=== PATIENT | female | born 1940 | race Caucasian/White ===

== ENCOUNTER 2023-07-12 12:20 | Outpatient (AMB) | payer MEDICARE, SELFPAY ==
--- NOTE | 2023-07-12 12:26 | AM.OFFWIN_ITS ---
Intake Vital Signs 07/12/23 12:31 Height 5 ft 3 in Weight 155 lb BMI 27.5 BP 126/70 Blood Pressure Location Rt brachial Position Sitting Pulse 72 Pulse Source Pulse Oximeter Temp 98.7 F Temp Source Oral Pulse Oximetry (%) 98 Oxygen Delivery Method Room Air Intake Visit Reasons: [employer]/ hip/thigh pain (lobby) Intake Note: pt is here for hip an thigh pain Patient Tobacco Use Status: Never used Tobacco Allergies No Known Allergies Allergy (Verified 07/12/23 12:32) Do you need a note to return to daycare/school/sports/work: No HPI HPI Comments History of Present Illness Details 83 y/o female patient who presents to [facility] in clinic with c/o right hip/thigh pain that radiates down to her lower leg x 2 weeks. Describes the pain as Burning and sharp, comes and goes in waves. Pain worse when lying in Bed. Denies injury or trauma. PFSH Social History Patient Tobacco Use Status: Never used Tobacco Review of Systems Const All systems reviewed & are unremarkable except as noted in HPI and below Physical Exam Vital Signs: Last Vital Signs Temp 98.7 F 07/12/23 12:31 Pulse 72 07/12/23 12:31 BP 126/70 07/12/23 12:31 Pulse Ox 98 07/12/23 12:31 Oxygen Delivery Method Room Air 07/12/23 12:31 BMI result Body Mass Index 27.5 Const General: comfortable and no acute distress Nutritional Appearance: obese Orientation/consciousness: patient oriented x3 Neuro General: patient oriented x3, gait normal and moves all extremities Extrem Right lower extremity: normal to inspection, full ROM and hip/thigh Details: normal to inspection and normal ROM; no swelling Left lower extremity: normal to inspection, full ROM and hip/thigh Details: normal to inspection and normal ROM Psych Speech and movement: Normal speech and movement present Assessment & Plan Assessment & Plan (1) Osteoarthritis of right hip: Code(s): M16.11 - Unilateral primary osteoarthritis, right hip Qualifiers: Osteoarthritis type: primary Qualified Code(s): M16.11 - Unilateral primary osteoarthritis, right hip Plan: - Acetaminophen for pain relief - Placed referral to PT - [facility] Orders: Orders XR hip RT min 2V Today M16.11 - Unilateral primary osteoarthritis, right hip PT Evaluation and Treatment Today M16.11 - Unilateral primary osteoarthritis, right hip Medications: New acetaminophen 1,000 mg (2 x 500 mg) PO Q6H PRN 30 caps 0RF pain (scale score 4- 6) M16.11 - Unilateral primary osteoarthritis, right hip Coding Level of Care Code New Pt Level 3 (15251) Diagnoses Primary osteoarthritis of right hip M16.11 Osteoarthritis type: primary Time Spent (min) 15
[2023-07-12 12:31] VITALS: BP 126/70; PULSE 72; TEMP 37.1; O2SAT 98; BMI 27.5
== END 2023-07-12 12:56 | disposition home or self-care (01) ==
PROVIDERS: Visit Provider Nurse Practitioner Family
DX: M16.11 Unilateral primary osteoarthritis, right hip (principal)
CPT/HCPCS: 99203

== ENCOUNTER 2023-07-12 13:22 | Outpatient (REF) | payer MEDICARE, SELFPAY ==
--- NOTE | ~2023-07-12 | XR_ITS ---
EXAMINATION: XR HIP, RIGHT CLINICAL INFORMATION: Right hip pain. COMPARISON: None available. TECHNIQUE: Two views of the right hip. FINDINGS: Alignment is anatomic. There is moderate inferomedial cartilage space loss with marginal osteophytes. No displaced fracture or dislocation. XR/XR hip RT min 2V IMPRESSION: Moderate osteoarthritis of the right hip.
== END 2023-07-12 13:23 | disposition home or self-care (01) ==
LOC: HO.HMGCX 13:22
PROVIDERS: Visit Provider Nurse Practitioner Family
DX: M16.11 Unilateral primary osteoarthritis, right hip (principal)
CPT/HCPCS: 73502

== ENCOUNTER 2023-08-28 10:00 | Outpatient (RCR) | payer MEDICARE, SELFPAY ==
--- NOTE | 2023-07-29 11:58 | MHC.PT.EP ---
[facility] [place] Office [place] Office [place] Office [address] [phone] F: [phone] F: [phone] F: [phone] F: [phone] Physical Therapy Plan of Care Date of Evaluation: 07/29/23 Date of Surgery: Diagnosis: Unilateral OA R hip Assessment: Patient is a 83 year old R handed female who presents with s/s consistent with unilateral OA R hip, Hip pain. She does not work and is fairly sedentary in her daily routine. Patient past medical history includes anxiety and a history of falls. Current impairments include pain, posture, ROM, strength, activity tolerance and functional mobility. Functional limitations include decreased ability to sleep, stand, walk, bend, squat and lift. Patient is motivated with good rehab potential. Skilled PT will address impairments and functional limitations in order to achieve goals. Frequency and Duration: The patient will be seen 2x/week for 5 weeks Short Term Goals: I with HEP - 2 weeks hip ER 37 R - 3 weeks Lumbar AROM rotation 75% and pain free - 3 weeks Nursing Home Goals: pain free sleeping - 5 weeks hip strength 4/5 grossly - 5 weeks [address]metrical stair negotiation - 5 weeks LEFS 28/ - 5 weeks Treatment Plan: Modalities to reduce pain, spasms and effusion. Manual therapy to restore motion and function. Therapeutic exercise to improve strength and flexibility. Neuromuscular re-education for posture and balance. Therapeutic activities to return to functional activities of daily living. Electronically signed by: Kendrick Atkinson PT Please sign and return to therapist. Thank you for your referral.
--- NOTE | 2023-11-27 10:51 | MHC.PT.DC ---
[facility] [place] Office [place] Office [place] Office [address] Kashif Mcnair [address] [phone] F: [phone] F: [phone] F: [phone] F: [phone] Physical Therapy Discharge Report Diagnosis: Unilateral OA R hip Date of Surgery: Date of Evaluation: 07/29/23 Date of Discharge: 09/18/23 Treatments to Date: 4 Cancellations to Date: No Shows to Date: Discharge Status: Patient Elected to Stop Discharge Summary: 08/28/23: pt not progressing well with skilled PT. she does self limit at times and seems downtrodden often. difficulty to progress. 08/12/23: pt progressing slowly and self limits at times. we held on progression today and pt required a good amount of edu and encouragement. 08/02/23: pt progressing well with skilled PT. she requires some encouragement but motivated and willing to participate. Patient is a 83 year old R handed female who presents with s/s consistent with unilateral OA R hip, Hip pain. She does not work and is fairly sedentary in her daily routine. Patient past medical history includes anxiety and a history of falls. Current impairments include pain, posture, ROM, strength, activity tolerance and functional mobility. Functional limitations include decreased ability to sleep, stand, walk, bend, squat and lift. Patient is motivated with good rehab potential. Skilled PT will address impairments and functional limitations in order to achieve goals. Electronically signed by: Kendrick Atkinson, PT Please sign and return to therapist. Thank you for your referral.
== END 2023-11-27 10:52 | disposition home or self-care (01) ==
LOC: HO.PTCHIC 10:00
PROVIDERS: PCP Internal Medicine; Visit Provider Nurse Practitioner Family
DX: M16.11 Unilateral primary osteoarthritis, right hip (principal)
CPT/HCPCS: 97110; 97162

== ENCOUNTER 2023-11-13 10:14 | Outpatient (AMB) | payer MEDICARE, SELFPAY ==
[2023-11-13 10:26] VITALS: BP 128/80; PULSE 70; O2SAT 98; BMI 26.9
--- NOTE | 2023-11-13 10:26 | MHC.PC.OV ---
Vital Signs 11/13/23 10:26 Height 5 ft 3 in Weight 152 lb BMI 26.9 BP 128/80 Blood Pressure Location Lt brachial Position Sitting Pulse 70 Pulse Source Pulse Oximeter Pulse Oximetry (%) 98 Oxygen Delivery Method Room Air Intake Visit Reasons: est Care Osteoarthritis Intake Note: Pt is here today for New patient visit. Pt states that she does not like being alone and she lives alone. Allergies No Known Allergies Allergy (Verified 11/13/23 10:27) Medication List - Last Reconciled 11/13/23 by Gail Andre MD acetaminophen 1,000 mg (2 x 500 mg) PO Q6H PRN amlodipine 5 mg PO DAILY lisinopril 40 mg PO DAILY lorazepam mg PO QID metoprolol succinate ER 50 mg PO BID mirtazapine 15 mg PO BEDTIME venlafaxine 75 mg PO DAILY Tobacco use date assessed: 11/13/23 Fall risk assessment: 1 Fall in past year Last assessed Fall Risk: 11/13/23 Dental Screening Dental Screen Date: 11/13/23 Did you have a dental visit in the last 12 months?: No Did you have a dental problem in the last 6 months where you did not have access to dental care?: No Was dental information given to patient?: Patient declined HPI est Care Osteoarthritis HPI Details Pt presents for [employer] visit. PMH includes HTN, depression and anxiety. Pt c/o worsening depression since her 3 years ago. She has been taking mirtazapine and venlafaxine with some relief. Patient would like to have a counseling. She denies suicide ideation. PFSH Surgical History (Updated 11/13/23 @ 10:37 by JUSTO Awad) History of bilateral knee replacement Hx of appendectomy Hx of cholecystectomy Family History (Updated 11/13/23 @ 10:38 by JUSTO Awad) Father No problems noted. Mother Stroke Hypertension Social History (Updated 11/13/23 @ 11:10 by Gail Andre MD) Household Members: None Household Members Other:: lives alone, Housing: House Patient Tobacco Use Status: Never used Tobacco e-Cigarette/Vaping Use: Never Used service: No Current occupational status: retired Cognitive needs: No Hearing needs: Yes Vision needs: Yes Questionnaire PHQ-9 Over the last 2 weeks, how often have you been bothered by any of the following problems? 1. Little interest or pleasure in doing things: several days 2. Feeling down, depressed, or hopeless: nearly every day 3. Trouble falling or staying asleep, or sleeping too much: nearly every day 4. Feeling tired or having little energy: nearly every day 5. Poor appetite or overeating: several days 6. Feeling bad about yourself - or that you are a failure or have let yourself or your family down: not at all 7. Trouble concentrating on things, such as reading the newspaper or watching television: several days 8. Moving or speaking so slowly that other people could have noticed. Or the opposite - being so fidgety or restless that you have been moving around a lot more than usual: not at all 9. Thoughts that you would be better off or of hurting yourself in some way: not at all Total score: 12 Depression Screening Interpretation: Positive (refer to counseling) Depression Screening Follow-up: Existing condition and In treatment Depression Screening Done: Yes 69548 - PHQ-9 Billing: Yes Source: Developed by Drs. Chaitanya Vitale, Elicia Nunez, Kirk Smith and colleagues, with an educational jenniffer from [employer]. Thrive Questionnaire Date Thrive assessed: 11/13/23 I am a: Patient What is your living situation today?: I have a steady place to live Within the past 12 months, did the food you bought not last and you didn't have the money to get more?: Never true Within the past 12 months, did you worry whether your food would run out before you got money to buy more?: Never true Do you have trouble paying for medicines?: No Do you have trouble getting transportation to medical appointments?: No Do you have trouble paying your heating and electricity bill?: No Do you have trouble taking care of your child, family member or friend?: No Do you have trouble with day-to-day activities such as bathing, preparing meals, shopping, managing finances, etc.?: No Are you currently unemployed and looking for a job?: No Are you interested in more education?: No Please select the resources that you would like help with: None Currently or been in a relationship where the following occur: No concerns reported THRIVE Score: 0 AUDIT C Alcohol Use Questionnaire (AUDIT-C) 1. How often do you have a drink containing alcohol?: Never 3. How often do you have six or more drinks on one occasion?: Never Total Score: 0 MAULIK-7 AMB Questionnaire MAULIK-7 Date MAULIK - 7 assessed: 11/13/23 Feeling nervous, anxious, or on edge: 2 = More than half the days Not being able to stop or control worryin = More than half the days Worrying too much about different things: 2 = More than half the days Trouble relaxin = More than half the days Being so restless that it is hard to sit still: 0 = Not at all Becoming easily annoyed or irritable: 1 = Several days Feeling afraid as if something awful might happen: 1 = Several days Total MAULIK-7 score (0-4 normal; 5-9 mild; 10-14 moderate; 15-21 severe): 10 Source: Developed by Drs. Chaitanya Vitale, Elicia Nunez, Kirk Smith and colleagues, with an educational jenniffer from [employer]. MAULIK-7 Assessment Billing MAULIK-7 Assessment Tool: MAULIK-7 Assessment 45122 Review of Systems Const All systems reviewed & are unremarkable except as noted in HPI and below Eyes Reports no additional complaints ENT Reports no additional complaints Card Reports no additional complaints Resp Reports no additional complaints GI Reports no additional complaints Reports no additional complaints Physical exam (Primary Care) Vital Signs: Last Vital Signs Pulse 70 11/13/23 10:26 BP 128/80 11/13/23 10:26 Pulse Ox 98 11/13/23 10:26 Oxygen Delivery Method Room Air 11/13/23 10:26 BMI result Body Mass Index 26.9 Tobacco/Smoking Status: Tobacco use Status Tobacco use date assessed 11/13/23 11/13/23 10:43 Patient Tobacco Use Status Never used Tobacco 11/13/23 11:10 e-Cigarette/Vaping Use Never Used 11/13/23 11:10 PHQ-9: PHQ-9 Score PHQ-9: Total score 12 11/13/23 11:12 Depression Screening Interpretation: Positive (refer to counseling) Depression Screening Follow-up: Existing condition and In treatment Thrive Assessment: Date of Thrive Assessment Date Thrive assessed 11/13/23 11/13/23 10:44 Currently or been in a relationship where the following occur: No concerns reported Const General: no acute distress HENMT Head: Yes normal to inspection Ears: hearing grossly normal bilaterally Face and sinus: Yes normal facial exam Eyes General: appearance normal, both eyes and all related structures Neck Neck: Yes no lymphadenopathy and Yes supple Resp Effort & Inspection: normal respiratory effort Auscultation: clear to auscultation bilaterally Cardio Rhythm: regular rhythm Heart sounds: S1 normal heart sound present and S2 normal heart sound present GI Inspection: Yes normal to inspection Palpation (GI): Soft to palpation Percussion: Yes normal to percussion Auscultation: normal bowel sounds Assessment and Plan Assessment & Plan (1) Anxiety and depression: Code(s): F41.9 - Anxiety disorder, unspecified; F32.A - Depression, unspecified Plan: Continue current medications referred to counseling, follow-up in 1 month (2) HTN (hypertension): Code(s): I10 - Essential (primary) hypertension Plan: Continue current medications (3) Osteoarthritis of right hip: Comment: moderate OA, 06/2023 Code(s): M16.11 - Unilateral primary osteoarthritis, right hip Plan: Continue regular home exercises (4) Vitamin D deficiency: Code(s): E55.9 - Vitamin D deficiency, unspecified Plan: Continue vitamin D3 and check the level Orders: Orders Comprehensive [place]. Panel Fast Today E55.9 - Vitamin D deficiency, unspecified, F32.A - Depression, unspecified, F41.9 - Anxiety disorder, unspecified, I10 - Essential (primary) hypertension Complete Blood Count Auto Diff Today E55.9 - Vitamin D deficiency, unspecified, F32.A - Depression, unspecified, F41.9 - Anxiety disorder, unspecified, I10 - Essential (primary) hypertension TSH reflex Free T4 Today E55.9 - Vitamin D deficiency, unspecified, F32.A - Depression, unspecified, F41.9 - Anxiety disorder, unspecified, I10 - Essential (primary) hypertension Vitamin D 25-OH Total Today E55.9 - Vitamin D deficiency, unspecified, F32.A - Depression, unspecified, F41.9 - Anxiety disorder, unspecified, I10 - Essential (primary) hypertension Lipid Panel Today E55.9 - Vitamin D deficiency, unspecified, F32.A - Depression, unspecified, F41.9 - Anxiety disorder, unspecified, I10 - Essential (primary) hypertension Coding Level of Care Code New Pt Level 4 (09094) Diagnoses Anxiety and depression F41.9; F32.A HTN (hypertension) I10 Osteoarthritis of right hip M16.11 Vitamin D deficiency E55.9 Additional Codes MAULIK-7 Assessment Billing - MAULIK-7 Assessment Tool: MAULIK-7 Assessment 27923 ([id number])
== END 2023-11-13 15:33 | disposition home or self-care (01) ==
PROVIDERS: PCP Internal Medicine; Visit Provider Internal Medicine
DX: F41.9 Anxiety disorder, unspecified (principal); F32.A Depression, unspecified; I10 Essential (primary) hypertension; M16.11 Unilateral primary osteoarthritis, right hip; E55.9 Vitamin D deficiency, unspecified

== ENCOUNTER → 2023-11-13 10:14 | Outpatient (BNVA) | payer MEDICARE, SELFPAY | PROVIDERS: PCP Internal Medicine; Visit Provider Internal Medicine | DX: F41.9 Anxiety disorder, unspecified (principal); F32.A Depression, unspecified; I10 Essential (primary) hypertension; E55.9 Vitamin D deficiency, unspecified; M16.11 Unilateral primary osteoarthritis, right hip | CPT/HCPCS: 96127; 99202 ==

== ENCOUNTER 2023-11-15 08:58 | Outpatient (REF) | payer MEDICARE, SELFPAY ==
[2023-11-15 10:00] LABS: MANUAL DIFF FLAG NO
[2023-11-15 10:14] LABS: Basophils Absolute Auto 0.1 X10*3/uL (0.0-0.2); Basophils Percent Auto 1.1 % (0-2); Eosinophils Absolute Auto 0.1 X10*3/uL (0.0-0.4); Hemoglobin 14.8 g/dl (12.0-16.0); Imm Gran Abs Auto 0.02 X10*3/uL (0.00-0.03); Imm Gran Pct Auto 0.3 % (0.0-0.4); Lymphocytes Absolute Auto 2.1 X10*3/uL (1.2-4.9); Lymphocytes Percent Auto 29.6 % (20-40); Mean Corpuscular HGB Conc 33.6 g/dl (31.0-35.0); Mean Corpuscular Hemoglobin 30.7 pg (27.0-33.0); Mean Corpuscular Volume 91.3 fL (80.0-98.0); Mean Platelet Volume 9.8 fL (9.4-12.3); Monocytes Absolute Auto 0.5 X10*3/uL (0.1-1.2); Monocytes Percent Auto 7.2 % (2-11); Neutrophils Absolute Auto 4.2 x10*3/uL (2.0-8.3); Neutrophils Percent Auto 59.8 % (45-73); Platelet Count 339 X10*3/uL (160-400); Red Blood Count 4.82 X10*6/uL (4.20-5.50); Red Cell Distribution Width 12.3 % (11.0-16.0)
[2023-11-15 10:29] LABS: Alanine Aminotransferase 9 U/L (0-31); Albumin Level 4.1 g/dL (3.5-5.0); Alkaline Phosphatase 64 U/L (39-117); Anion Gap 11 (12-20); Aspartate Amino Transferase 15 U/L (5-31); Bilirubin Total 0.5 mg/dL (0.0-1.0); Blood Urea Nitrogen 17 mg/dL (9-16); Calcium 9.5 mg/dL (8.4-10.2); Carbon Dioxide 28 mmol/L (22-29); Chloride 107 mmol/L (96-108); Cholesterol 227 mg/dL (<200); Estimated Glomerular Filt Rate > 60; Glucose Fasting 116 mg/dL (60-99); HDL Cholesterol 52 mg/dL (>40); LDL Cholesterol Calculated 157 mg/dL (<100); Potassium 3.8 mmol/L (3.3-5.1); Sodium 142 mmol/L (135-145); Total Protein 7.1 g/dL (6.5-8.0); Triglycerides 91 mg/dL (<150)
[2023-11-15 10:48] LABS: TSH reflex Free T4 0.98 uIU/mL (0.32-4.0); Vitamin D 25-OH Total 54.7 ng/mL (>30)
== END 2023-11-15 08:59 | disposition home or self-care (01) ==
LOC: HO.HMGCLDS 08:58
PROVIDERS: PCP Internal Medicine; Visit Provider Internal Medicine
DX: I10 Essential (primary) hypertension (principal); E55.9 Vitamin D deficiency, unspecified; F41.9 Anxiety disorder, unspecified; F32.A Depression, unspecified
CPT/HCPCS: 36415; 80053; 80061; 82306; 84443; 85025

== ENCOUNTER 2023-12-11 12:34 | Outpatient (AMB) | payer MEDICARE, SELFPAY ==
--- NOTE | 2023-12-11 12:36 | MHC.PC.OV ---
Vital Signs 12/11/23 12:37 Height 5 ft 3 in Weight 153 lb BMI 27.1 BP 122/74 Blood Pressure Location Lt brachial Position Sitting Pulse 76 Pulse Source Pulse Oximeter Pulse Oximetry (%) 96 Oxygen Delivery Method Room Air Intake Visit Reasons: 1 month follow up Intake Note: Pt is here today for 1 month follow up visit on depression. Allergies No Known Allergies Allergy (Verified 12/11/23 12:40) Medication List - Last Reconciled 12/11/23 by Gail Andre MD acetaminophen 1,000 mg (2 x 500 mg) PO Q6H PRN amlodipine 5 mg PO DAILY lisinopril 40 mg PO DAILY metoprolol succinate ER 50 mg PO BID mirtazapine 15 mg PO BEDTIME venlafaxine 75 mg PO DAILY Tobacco use date assessed: 12/11/23 Dental Screening Dental Screen Date: 11/13/23 HPI 1 month follow up HPI Details Pt presents for HTN, hyperlipidemia chronic anxiety depression and insomnia. Patient tried counseling but is going to call and request more experienced therapist. She denies suicide ideation [facility] Surgical History (Updated 11/13/23 @ 10:37 by JUSTO Awad) History of bilateral knee replacement Hx of appendectomy Hx of cholecystectomy Family History (Updated 11/13/23 @ 10:38 by JUSTO Awad) Father No problems noted. Mother Stroke Hypertension Social History (Updated 11/13/23 @ 11:10 by Gail Andre MD) Household Members: None Household Members Other:: lives alone, Housing: House Patient Tobacco Use Status: Never used Tobacco e-Cigarette/Vaping Use: Never Used service: No Current occupational status: retired Cognitive needs: No Hearing needs: Yes Vision needs: Yes Questionnaire PHQ-9 Over the last 2 weeks, how often have you been bothered by any of the following problems? 1. Little interest or pleasure in doing things: several days 2. Feeling down, depressed, or hopeless: nearly every day 3. Trouble falling or staying asleep, or sleeping too much: nearly every day 4. Feeling tired or having little energy: nearly every day 5. Poor appetite or overeating: several days 6. Feeling bad about yourself - or that you are a failure or have let yourself or your family down: not at all 7. Trouble concentrating on things, such as reading the newspaper or watching television: several days 8. Moving or speaking so slowly that other people could have noticed. Or the opposite - being so fidgety or restless that you have been moving around a lot more than usual: not at all 9. Thoughts that you would be better off or of hurting yourself in some way: not at all Total score: 12 Depression Screening Interpretation: Positive (refer to counseling) Depression Screening Follow-up: Existing condition and In treatment Depression Screening Done: Yes 05555 - PHQ-9 Billing: Yes Source: Developed by Drs. Chaitanya Vitale, Elicia Nunez, Kirk Smith and colleagues, with an educational jenniffer from [employer]. Thrive Questionnaire Date Thrive assessed: 12/08/23 I am a: Patient What is your living situation today?: I have a steady place to live THRIVE Score: 0 MAULIK-7 AMB Questionnaire MAULIK-7 Date MAULIK - 7 assessed: 11/13/23 Source: Developed by Drs. Chaitanya Vitale, Elicia Nunez, Kirk Smith and colleagues, with an educational jenniffer from [employer]. Review of Systems Const All systems reviewed & are unremarkable except as noted in HPI and below Eyes Reports no additional complaints ENT Reports no additional complaints Card Reports no additional complaints Resp Reports no additional complaints GI Reports no additional complaints Reports no additional complaints Physical exam (Primary Care) Vital Signs: Last Vital Signs Pulse 76 12/11/23 12:37 BP 122/74 12/11/23 12:37 Pulse Ox 96 12/11/23 12:37 Oxygen Delivery Method Room Air 12/11/23 12:37 BMI result Body Mass Index 27.1 Tobacco/Smoking Status: Tobacco use Status Tobacco use date assessed 12/11/23 12/11/23 12:42 Patient Tobacco Use Status Never used Tobacco 12/11/23 12:38 e-Cigarette/Vaping Use Never Used 12/11/23 12:38 PHQ-9: PHQ-9 Score PHQ-9: Total score 12 12/11/23 13:08 Depression Screening Interpretation: Positive (refer to counseling) Depression Screening Follow-up: Existing condition and In treatment Thrive Assessment: Date of Thrive Assessment Date Thrive assessed 12/08/23 12/11/23 12:38 Const General: no acute distress HENMT Head: Yes normal to inspection Mouth: Normal oral and palatal mucosa present Throat: Yes posterior oropharynx normal Neck Neck: Yes no lymphadenopathy and Yes supple Resp Effort & Inspection: normal respiratory effort Auscultation: clear to auscultation bilaterally Cardio Rhythm: regular rhythm Heart sounds: S1 normal heart sound present and S2 normal heart sound present GI Inspection: Yes normal to inspection Palpation (GI): Soft to palpation Percussion: Yes normal to percussion Coding Level of Care Code Est Pt Level 4 (60329) Diagnoses HTN (hypertension) I10 Anxiety and depression F41.9; F32.A Hyperlipidemia E78.5 Assessment & Plan Assessment & Plan (1) HTN (hypertension): Code(s): I10 - Essential (primary) hypertension Category: Medical Plan: Continue current medications (2) Anxiety and depression: Code(s): F41.9 - Anxiety disorder, unspecified; F32.A - Depression, unspecified Category: Medical Plan: Continue venlafaxine and add mirtazapine 15 mg at at bedtime (3) Hyperlipidemia: Code(s): E78.5 - Hyperlipidemia, unspecified Category: Medical Plan: Low-cholesterol diet discussed with the patient's start pravastatin follow-up in 3 months with a fasting labs before Orders: Orders Hemoglobin A1c 3 Months E78.5 - Hyperlipidemia, unspecified, F32.A - Depression, unspecified, F41.9 - Anxiety disorder, unspecified, I10 - Essential (primary) hypertension Lipid Panel 3 Months E78.5 - Hyperlipidemia, unspecified, F32.A - Depression, unspecified, F41.9 - Anxiety disorder, unspecified, I10 - Essential (primary) hypertension Comprehensive [place]. Panel Fast 3 Months E78.5 - Hyperlipidemia, unspecified, F32.A - Depression, unspecified, F41.9 - Anxiety disorder, unspecified, I10 - Essential (primary) hypertension Medications: New pravastatin 20 mg PO DAILY 90 tabs 1RF mirtazapine 15 mg PO BEDTIME 90 tabs 3RF
[2023-12-11 12:37] VITALS: BP 122/74; PULSE 76; O2SAT 96; BMI 27.1
== END 2023-12-11 15:01 | disposition home or self-care (01) ==
PROVIDERS: PCP Internal Medicine; Visit Provider Internal Medicine
DX: I10 Essential (primary) hypertension (principal); F41.9 Anxiety disorder, unspecified; F32.A Depression, unspecified; E78.5 Hyperlipidemia, unspecified

== ENCOUNTER → 2023-12-11 12:34 | Outpatient (BNVA) | payer MEDICARE, SELFPAY | PROVIDERS: PCP Internal Medicine; Visit Provider Internal Medicine | DX: I10 Essential (primary) hypertension (principal); F41.9 Anxiety disorder, unspecified; F32.A Depression, unspecified; E78.5 Hyperlipidemia, unspecified; Z79.899 Other long term (current) drug therapy | CPT/HCPCS: 96127; 99212 ==

== ENCOUNTER 2024-04-07 11:17 | Outpatient (AMB) | payer MEDICARE, SELFPAY ==
[2024-04-07 11:19] VITALS: BP 118/70; PULSE 78; RESP 18; TEMP 37.2; O2SAT 97; BMI 26.2
--- NOTE | 2024-04-07 11:19 | A.OFFPC_ITS ---
Vital Signs 04/07/24 11:19 Height 5 ft 3 in Weight 148 lb BMI 26.2 BP 118/70 Blood Pressure Location Lt brachial Position Sitting Respiration 18 Pulse 78 Pulse Source Pulse Oximeter Temp 98.9 F Temp Source Oral Pulse Oximetry (%) 97 Oxygen Delivery Method Room Air Intake Visit Reasons: F/U care review Intake Note: Pt is here today for a follow up visit. Allergies No Known Allergies Allergy (Verified 04/07/24 11:20) Medication List - Last Reconciled 04/07/24 by Gail Andre MD acetaminophen 1,000 mg (2 x 500 mg) PO Q6H PRN amlodipine 5 mg PO DAILY lisinopril 40 mg PO DAILY metoprolol succinate ER 50 mg PO BID mirtazapine 15 mg PO BEDTIME pravastatin 20 mg PO DAILY venlafaxine 75 mg PO DAILY Tobacco use date assessed: 04/07/24 Fall risk assessment: No Falls in past year Last assessed Fall Risk: 04/07/24 Dental Screening Dental Screen Date: 04/07/24 Did you have a dental visit in the last 12 months?: No Did you have a dental problem in the last 6 months where you did not have access to dental care?: No Was dental information given to patient?: Patient declined HPI F/U care review HPI Details Pt presents for f/u HTN, hyperlipid, chronic depression in grieving her for 3 years. Patient tried counseling but a 28-year-old counselor could not related to her. She has been more socially and physically active planning to start going to senior center at least 3 times a week. Patient has been talking to her sister and her lifetime friend who lost her recently. She denies suicide ideation change in appetite or sleeping pattern PFSH Surgical History History of bilateral knee replacement Hx of appendectomy Hx of cholecystectomy Family History Father No problems noted. Mother Stroke Hypertension Social History Household Members: None Household Members Other:: lives alone, Housing: House Patient Tobacco Use Status: Never used Tobacco e-Cigarette/Vaping Use: Never Used service: No Current occupational status: retired Cognitive needs: No Hearing needs: Yes Vision needs: Yes Questionnaire PHQ-9 Over the last 2 weeks, how often have you been bothered by any of the following problems? 1. Little interest or pleasure in doing things: not at all 2. Feeling down, depressed, or hopeless: not at all 3. Trouble falling or staying asleep, or sleeping too much: nearly every day 4. Feeling tired or having little energy: nearly every day 5. Poor appetite or overeating: not at all 6. Feeling bad about yourself - or that you are a failure or have let yourself or your family down: not at all 7. Trouble concentrating on things, such as reading the newspaper or watching television: not at all 8. Moving or speaking so slowly that other people could have noticed. Or the opposite - being so fidgety or restless that you have been moving around a lot more than usual: not at all 9. Thoughts that you would be better off or of hurting yourself in some way: not at all Total score: 6 Depression Screening Interpretation: Negative Depression Screening Done: Yes 04456 - PHQ-9 Billing: Yes Source: Developed by Drs. Chaitanya Vitale, Elicia Nunez, Kirk Smith and colleagues, with an educational jenniffer from [employer]. Thrive Questionnaire Date Thrive assessed: 04/07/24 I am a: Patient What is your living situation today?: I have a steady place to live Within the past 12 months, did the food you bought not last and you didn't have the money to get more?: Never true Within the past 12 months, did you worry whether your food would run out before you got money to buy more?: Never true Do you have trouble paying for medicines?: No Do you have trouble getting transportation to medical appointments?: No Do you have trouble paying your heating and electricity bill?: No Do you have trouble taking care of your child, family member or friend?: No Do you have trouble with day-to-day activities such as bathing, preparing meals, shopping, managing finances, etc.?: No Are you currently unemployed and looking for a job?: No Are you interested in more education?: No Please select the resources that you would like help with: None THRIVE Score: 0 AUDIT C Alcohol Use Questionnaire (AUDIT-C) 1. How often do you have a drink containing alcohol?: Never 3. How often do you have six or more drinks on one occasion?: Never Total Score: 0 MAULIK-7 AMB Questionnaire MAULIK-7 Date MAULIK - 7 assessed: 04/07/24 Feeling nervous, anxious, or on edge: 0 = Not at all Not being able to stop or control worryin = Not at all Worrying too much about different things: 0 = Not at all Trouble relaxin = Not at all Being so restless that it is hard to sit still: 0 = Not at all Becoming easily annoyed or irritable: 0 = Not at all Feeling afraid as if something awful might happen: 0 = Not at all Total MAULIK-7 score (0-4 normal; 5-9 mild; 10-14 moderate; 15-21 severe): 0 Source: Developed by Drs. Chaitanya Vitale, Elicia Nunez, Kirk Smith and colleagues, with an educational jenniffer from [employer]. MAULIK-7 Assessment Billing MAULIK-7 Assessment Tool: MAULIK-7 Assessment 56208 Review of Systems Const All systems reviewed & are unremarkable except as noted in HPI and below Eyes Reports no additional complaints ENT Reports no additional complaints Card Reports no additional complaints Resp Reports no additional complaints GI Reports no additional complaints Reports no additional complaints Physical exam (Primary Care) Vital Signs: Last Vital Signs Temp 98.9 F 04/07/24 11:19 Pulse 78 04/07/24 11:19 Resp 18 04/07/24 11:19 BP 118/70 04/07/24 11:19 Pulse Ox 97 04/07/24 11:19 Oxygen Delivery Method Room Air 04/07/24 11:19 BMI result Body Mass Index 26.2 Tobacco/Smoking Status: Tobacco use Status Tobacco use date assessed 04/07/24 04/07/24 11:20 Patient Tobacco Use Status Never used Tobacco 04/07/24 11:20 e-Cigarette/Vaping Use Never Used 04/07/24 11:20 PHQ-9: PHQ-9 Score PHQ-9: Total score 6 04/07/24 12:12 Depression Screening Interpretation: Negative Thrive Assessment: Date of Thrive Assessment Date Thrive assessed 04/07/24 04/07/24 11:20 Const General: no acute distress HENMT Head: Yes normal to inspection Ears: hearing grossly normal bilaterally Eyes General: appearance normal, both eyes and all related structures Neck Neck: Yes no lymphadenopathy and Yes supple Resp Effort & Inspection: normal respiratory effort Auscultation: clear to auscultation bilaterally Cardio Rhythm: regular rhythm Heart sounds: S1 normal heart sound present and S2 normal heart sound present GI Inspection: Yes normal to inspection Coding Level of Care Code Est Pt Level 4 (11256) Diagnoses HTN (hypertension) I10 Hyperlipidemia E78.5 Hyperglycemia R73.9 Anxiety and depression F41.9; F32.A Additional Codes MAULIK-7 Assessment Billing - MAULIK-7 Assessment Tool: MAULIK-7 Assessment 17523 ([id number]) PHQ-9 - 94694 - PHQ-9 Billing: Yes ([id number]) Assessment & Plan Assessment & Plan (1) HTN (hypertension): Code(s): I10 - Essential (primary) hypertension Category: Medical Plan: Continue current medications (2) Hyperlipidemia: Code(s): E78.5 - Hyperlipidemia, unspecified Category: Medical Plan: Restart pravastatin (3) Hyperglycemia: Code(s): R73.9 - Hyperglycemia, unspecified Category: Medical Plan: ADA diet increase physical activity discussed with the patient follow-up in 2 months check A1c (4) Anxiety and depression: Comment: After her in 2020 Code(s): F41.9 - Anxiety disorder, unspecified; F32.A - Depression, unspecified Category: Medical Plan: Continue current medications and follow-up in 2 months, patient declined counseling Orders: Orders Comprehensive [place]. Panel Fast 2 Months E78.5 - Hyperlipidemia, unspecified, I10 - Essential (primary) hypertension, R73.9 - Hyperglycemia, unspecified Lipid Panel 2 Months E78.5 - Hyperlipidemia, unspecified, I10 - Essential (primary) hypertension, R73.9 - Hyperglycemia, unspecified Hemoglobin A1c 2 Months E78.5 - Hyperlipidemia, unspecified, I10 - Essential (primary) hypertension, R73.9 - Hyperglycemia, unspecified Medications: Refilled pravastatin 20 mg PO DAILY 90 tabs 3RF
--- OUTSIDE RECORDS SUMMARY | 2024-04-07 12:33 | XMS_ITS ---
Author Organization [facility] Address [address] [place] [id number] Care Team Providers Care Supervisor Boiler Repair Name Role Phone CHRISSY MARIE Primary Care Provider ALLERGIES No Known Allergies REASON FOR VISIT F/U HTN, SLEEP MEDICATIONS Medication SIG (Take, Route, Frequency, Duration) Notes Start Date End Date Status Chlorhexidine Gluconate 0.12 % as directed twice a day Mouth/Throat twice daily for 30 days Active LORazepam 0.5 MG TAKE 1 TABLET BY MOUTH TWICE DAILY NEEDED FOR ANXIETY/PANIC for 30 days 05/26/2023 Active metroNIDAZOLE 0.75 % APPLY 1 APPLICATION EXTERNALLY TO THE AFFECTED AREAS TWICE DAILY for 30 Not-Taking Mirtazapine 15 MG TAKE 1 TABLET BY MOUTH AT BEDTIME orally daily for 90 days Active Metoprolol Succinate ER 50 MG Take 1 tablet by mouth twice daily Orally twice a day for 90 days Active Vitamin B12 3000mg (2) Active Biotin 13784 MCG 1 tablet Orally Once a day Active Lisinopril 40 MG 1 tablet Orally Once a day for 90 days Active amLODIPine Besylate 5 MG Take 1 tablet by mouth once daily for 90 Active Hair Skin & Nails 2 Gummies/day Active Effexor XR 75 MG Take 1 cap orally once daily Oral Effexor XR 75 mg capsule,extended release 12/26/2021 Not-Taking Lisinopril 20 MG 1 tablet Orally Once a day for 90 days lisinopriL 20 mg tablet Not-Taking amLODIPine Besylate 2.5 MG TAKE 1 TABLET BY MOUTH EVERY DAY IN THE EVENING for 90 Not-Taking Metoprolol Succinate ER 25 MG 1 tablet Orally twice daily for 90 days Not-Taking Venlafaxine HCl 75 MG 1 tablet with food Orally Once a day for 90 days 05/08/2023 Active Apple Cider Vinegar Takes 2 daily Not-Taking hydrOXYzine Pamoate 25 MG 1 capsule at bedtime as needed Orally Once a day for 30 days 02/06/2023 Not-Taking SOCIAL HISTORY Tobacco Use: Social History Observation Description Date Details (start date - stop date) Former Smoker NA - NA Sex Assigned At : Social History Observation Description Sex Assigned At Unknown Tobacco Use/Smoking Question Answer Notes Tobacco use: former smoker How long has it been since you last smoked? > 10 years Section Notes: Lives in [place], [place] alone. VITAL SIGNS Height 61 in 06/13/2023 Height-cm 154.94 cm 06/13/2023 Encounters Encounter [facility] Date [facility] [address] [id number] [facility]/13/2023 CHRISSY FRANK Essential (primary) hypertension I10 and Mixed anxiety and depressive disorder F41.8 ASSESSMENTS Encounter Date Diagnosis Assessment Notes Treatment Notes Treatment Clinical Notes Section Notes 06/13/2023 Essential (primary) hypertension (ICD-10 - I10) BP was elevated at last OV, was feeling more stressed at that time. Feels better now. She has not been able to check it. 06/13/2023 Mixed anxiety and depressive disorder (ICD-10 - F41.8) 06/13/2023 Other Total time spen t with patient 20 minutes which includes face to face visit, education and coordination of care. PLAN OF TREATMENT Medication Medication Name Sig Start Date Stop Date Notes Venlafaxine HCl 75 MG 1 tablet with food Orally Once a day for 90 days 05/08/2023 Treatment Notes Assessment Notes Essential (primary) hypertension BP was elevated at last OV, was feeling more stressed at that time. Feels better now. She has not been able to check it. Other Total time spent wit h patient 20 minutes which includes face to face visit, education and coordination of care. Next Appt Details Follow Up: 2 Months, Reason: f/u fatigue Progress Notes * IVY BALLESTEROSDOB:1940 (83 yo F)Acc No.[id number]:06/13/2023 Progress Note Patient:??IVY BALLESTEROS Provider:??Chrissy Marie DNP :1940?Age:83 Y?Sex:Fe male Date:06/13/2023 Phone: Address[address] [id number] Subjective: * Chief Complaints: * ?F/U HTN, SLEEP * HPI: ?Patient Care Team:? The patient consents to HIPAA compliant telehealth visit using video platform within EHR system. The patient states they are in a private location in their home and the provider is located in the office in a private room. ? Providers/Specialists: None at this time. ?Visit info:? Ivy presents by phone today for a telehealth visit to discuss her hypertension and sleep. Patient states she needs a new Rx for her Venlafaxine 75mg. * ROS:?all systems reviewed and are non-contributory unless specified in the HPI. * Medical History:?? * Video Production Intern History:?Last mammogram date??2020, normal per pt. @ [facility].?? * OB History:? History:?Total pregnancies:??2 ?Full-term pregnancies:??2 * Surgical History:??Cholecyst ectomy Bilateral knee replacements Ankle surgery, Rt - irving in ankle * Hospitalization/Major Diagno stic Procedure:?? * Family History:??Father: dec eased, Unknown health history.??Mother: 57 yrs, Stroke, Hypertension.??1 son(s) , 1 daughter(s) - healthy. .?? Son w/hypertension. * Social History:?Tobacco Use:?Tobacco Use/Smoking?Tobacco use:??former smoker ?How long has it been since you last smoked???> 10 years ?Drugs/Alcohol:?Do you drink alcohol?: Yes, Socially. ?Lives in [place], [place] alone. * Medications:??TakingBiotin 1 0000 MCG Tablet 1 tablet Orally Once a day Vitamin B12 , Notes to Pharmacist: 3000mg (2)Hair Skin & Nails , Notes to Pharmacist: 2 Gummies/dayamLODIPine Besylate 5 MG Tablet Take 1 tablet by mouth once daily Lisinopril 40 MG Tablet 1 tablet Orally Once a day Metoprolol Succinate ER 50 MG Tablet Extended Release 24 Hour Take 1 tablet by mouth twice daily Orally twice a day Mirtazapine 15 MG Tablet TAKE 1 TABLET BY MOUTH AT BEDTIME orally daily Venlafaxine HCl 75 MG Tablet 1 tablet with food Orally Once a day LORazepam 0.5 MG Tablet TAKE 1 TABLET BY MOUTH TWICE DAILY NEEDED FOR ANXIETY/PANIC Chlorhexidine Gluconate 0.12 % Solution as directed twice a day Mouth/Throat twice daily Taking Biotin 44615 MCG Tablet 1 tablet Orally Once a day Taking Vitamin B12 , Notes to Pharmacist: 3000mg (2)Taking Hair Skin & Nails , Notes to Pharmacist: 2 Gummies/dayTaking amLODIPine Besylate 5 MG Tablet Take 1 tablet by mouth once daily Taking Lisinopril 40 MG Tablet 1 tablet Orally Once a day Taking Metoprolol Succinate ER 50 MG Tablet Extended Release 24 Hour Take 1 tablet by mouth twice daily Orally twice a day Taking Mirtazapine 15 MG Tablet TAKE 1 TABLET BY MOUTH AT BEDTIME orally daily Taking Venlafaxine HCl 75 MG Tablet 1 tablet with food Orally Once a day Taking LORazepam 0.5 MG Tablet TAKE 1 TABLET BY MOUTH TWICE DAILY NEEDED FOR ANXIETY/PANIC Taking Chlorhexidine Gluconate 0.12 % Solution as directed twice a day Mouth/Throat twice daily Not-TakingmetroNIDAZOLE 0.75 % Gel APPLY 1 APPLICATION EXTERNALLY TO THE AFFECTED AREAS TWICE DAILY hydrOXYzine Pamoate 25 MG Capsule 1 capsule at bedtime as needed Orally Once a day As neededTiny White , Notes to Pharmacist: Takes 2 dailyMetoprolol Succinate ER 25 MG Tablet Extended Release 24 Hour 1 tablet Orally twice daily amLODIPine Besylate 2.5 MG Tablet TAKE 1 TABLET BY MOUTH EVERY DAY IN THE EVENING Lisinopril 20 MG Tablet 1 tablet Orally Once a day , Notes to Pharmacist: lisinopriL 20 mg tabletEffexor XR 75 MG Capsule Extended Release 24 Hour Take 1 cap orally once daily Oral , Notes to Pharmacist: Effexor XR 75 mg capsule,extended releaseMedication List reviewed and reconciled with the patientNot-Taking metroNIDAZOLE 0.75 % Gel APPLY 1 APPLICATION EXTERNALLY TO THE AFFECTED AREAS TWICE DAILY Not-Taking hydrOXYzine Pamoate 25 MG Capsule 1 capsule at bedtime as needed Orally Once a day As neededNot-Taking Apple Cider Vinegar , Notes to Pharmacist: Takes 2 dailyNot-Taking Metoprolol Succinate ER 25 MG Tablet Extended Release 24 Hour 1 tablet Orally twice daily Not-Taking amLODIPine Besylate 2.5 MG Tablet TAKE 1 TABLET BY MOUTH EVERY DAY IN THE EVENING Not-Taking Lisinopril 20 MG Tablet 1 tablet Orally Once a day , Notes to Pharmacist: lisinopriL 20 mg tabletNot-Taking Effexor XR 75 MG Capsule Extended Release 24 Hour Take 1 cap orally once daily Oral , Notes to Pharmacist: Effexor XR 75 mg capsule,extended releaseMedication List reviewed and reconciled with the patient * Allergies:??N.K.D.A.no[Aller gies Verified] Objective: * Vitals:??BP: Not Taken - Tel [facility], Ht: 61 in, Ht-cm: 154.94 cm. * Physical Examination:?GEN: NAD, speaking in full complete sentences, thoughts clear and appropriate ?RESP: nonlabored breathing, no audible SOB/Wheezing ?NEURO: AO x 3 ?PSYCH: judgment/insight intact, NL mood/affect. Assessment: * Assessment: 1.??Essential (primary) hype rtension - I10 (Primary)??2.??Mixed anxiety and depressive disorder - F41.8?? Plan: * Treatment: 2.??Mixed anxiety and depres sive disorder?? Refill Venlafaxine HCl Tablet, 75 MG, 1 tablet with food, Orally, Once a day, 90 days, 90, Refills 3.? 3.??Others?? Notes: Total time spent with patient 20 minutes which includes face to face visit, education and coordination of care.? * Procedure Codes:?? * Preventive Medicine:?Last CPE: 2020 ?DEXA: No ?Colonoscopy: Within 5 yrs, normal per pt.-in [place] ?Endoscopy: No ?Covid Vac: Yes & boosted ?Flu Vac: Yes ?PV: Yes ?Shingles Vac: Yes. * Follow Up:??2 Months (Reason : f/u fatigue) * Billing Information: * Visit Code:?? 64435 Office Visit, Est Pt., Level 3. * Procedure Codes:?? * Sign off status: Completed true * Provider:??Chrissy Marie DNP Date:??0 06/13/2023 History and Physical Notes * HPI (History of Present Illness) Category Sub-Category Detail Notes Category Not es Patient Care Team Providers/ Specialists: None at this time. Visit lv Haynes presents by phone today for a telehealth visit to discuss her hypertension and sleep. Patient states she needs a new Rx for her Venlafaxine 75mg. Physical Examination Category Sub-Category Detail Notes Section Note s GEN: NAD, speaking in full complete sentences, thoughts clear and appropriate RESP: nonlabored breathing, no audible SOB/Wheezing NEURO: AO x 3 PSYCH: judgment/insight intact, NL mood/affect
--- OUTSIDE RECORDS SUMMARY | 2024-04-07 12:33 | XMS_ITS | Patient Health Record ---
Author Organization [employer] [facility] Address [address] [place] [phone] Care Team Providers Care Knife Glazer Name Role Phone CHRISSY MARIE Primary Care Provider ALLERGIES No Known Allergies REASON FOR REFERRAL No Information MEDICATIONS Medication SIG (Take, Route, Frequency, Duration) Notes Start Date End Date Status Vitamin B12 3000mg (2) Active Apple Cider Vinegar Takes 2 daily Not-Taking Biotin 35182 MCG 1 tablet Orally Once a day Active hydrOXYzine Pamoate 25 MG 1 capsule at bedtime as needed Orally Once a day for 30 days 02/06/2023 Not-Taking Chlorhexidine Gluconate 0.12 % as directed twice a day Mouth/Throat twice daily for 30 days Active metroNIDAZOLE 0.75 % APPLY 1 APPLICATION EXTERNALLY TO THE AFFECTED AREAS TWICE DAILY for 30 Not-Taking Effexor XR 75 MG Take 1 cap orally once daily Oral Effexor XR 75 mg capsule,extended release 12/26/2021 Not-Taking Lisinopril 40 MG 1 tablet Orally Once a day for 90 days Active Lisinopril 20 MG 1 tablet Orally Once a day for 90 days lisinopriL 20 mg tablet Not-Taking amLODIPine Besylate 5 MG Take 1 tablet by mouth once daily for 90 Active amLODIPine Besylate 2.5 MG TAKE 1 TABLET BY MOUTH EVERY DAY IN THE EVENING for 90 Not-Taking Metoprolol Succinate ER 50 MG Take 1 tablet by mouth twice daily for 90 Active Hair Skin & Nails 2 Gummies/day Active Metoprolol Succinate ER 25 MG 1 tablet Orally twice daily for 90 days Not-Taking Mirtazapine 15 MG TAKE 1 TABLET BY MOUTH ONCE DAILY AT BEDTIME for 90 Active LORazepam 0.5 MG TAKE 1 TABLET BY MOUTH TWICE DAILY NEEDED FOR ANXIETY/PANIC Orally twice a day for 30 days 06/28/2023 Active Venlafaxine HCl 75 MG 1 tablet with food Orally Once a day for 90 days 05/08/2023 Active SOCIAL HISTORY Tobacco Use: Social History Observation Description Date Details (start date - stop date) Former Smoker NA - NA Sex Assigned At : Social History Observation Description Sex Assigned At Unknown Tobacco Use/Smoking Question Answer Notes Tobacco use: former smoker How long has it been since you last smoked? > 10 years Section Notes: Lives in [place] alone. Lives [place]. Lives [place]. Lives [place]. [place]. [place]. [place]. [place]. [place]. [place]. PROBLEMS Problem Type ICD Code Onset Dates Problem Status W/U Status Risk SNOMED Code Notes Problem Essential (primary) hypertension (I10) Active confirmed Essential hypertension (46942175) Problem Insomnia, unspecified type (G47.00) Active confirmed 896908046 Problem Mixed anxiety and depressive disorder (F41.8) Active confirmed [id number] VITAL SIGNS Heart Rate 69 /min 05/08/2023 Height-cm 154.94 cm 06/13/2023 Oximetry 99 % 05/08/2023 Blood pressure diastolic 74 mm Hg 05/08/2023 Weight-kg 72.94 kg 05/08/2023 Height 61 in 06/13/2023 Blood pressure systolic 128 mm Hg 05/08/2023 Weight 160.8 lbs 05/08/2023 BMI 30.38 kg/m2 05/08/2023 Encounters Encounter Location Date Provider Diagnosis [address] [id number] 06/06/2023 CHRISSY MARIE [address] [id number] 05/08/2023 CHRISSY MARIE Essential (primary) hypertension I10 ; Insomnia, unspecified type G47.00 and Mixed anxiety and depressive disorder F41.[address] [id number] 06/13/2023 CHRISSY MARIE Essential (primary) hypertension I10 and Mixed anxiety and depressive disorder F41.8 [facility], [facility] [address] [place], [place] [phone] 05/23/2023 CHRISSY MARIE [facility], [address] [id number] 05/28/2023 CHRISSY MARIE ASSESSMENTS Encounter Date Diagnosis Assessment Notes Treatment Notes Treatment Clinical Notes Section Notes 05/08/2023 Essential (primary) hypertension (ICD-10 - I10) BP stable, continue on current medication regime. 05/08/2023 Insomnia, unspecified type (ICD-10 - G47.00) Pt experiencing stressors and fatigue since being . Now sleeping on her mattress downstairs. 06/13/2023 Essential (primary) hypertension (ICD-10 - I10) BP was elevated at last OV, was feeling more stressed at that time. Feels better now. She has not been able to check it. 06/13/2023 Mixed anxiety and depressive disorder (ICD-10 - F41.8) 05/08/2023 Mixed anxiety and depressive disorder (ICD-10 - F41.8) Pt experiencing stressors and fatigue since being . Increase venlafaxine to 75mg 05/08/2023 Other Elena Tyson, LINE TECHNICIAN student saw the patient and formulated the note under direct supervision of Dr. Chrissy Marie, DNP. 06/13/2023 Other Total time spen t with patient 20 minutes which includes face to face visit, education and coordination of care. PLAN OF TREATMENT No Information Insurance Providers Payer Name Payer Address Payer Phone Subscriber Number Group Number Insured Name Patient Relationship to Insured Coverage Start Date Coverage End Date Medicare [address] [place] [address] [phone] [id number] FIDE BALLESTEROS Self - patient is the insured 8 [employer] MED[employer] [address] [place] [address] [id number] FIDE BALLESTEROS Self - patient is the insured MEDICAL (GENERAL) HISTORY Medical History History ICD Code Hypertension Depression Surgical History Surgery Date(Month/Year) Cholecystectomy Bilateral knee replacements Ankle surgery, Rt - irving in ankle
--- OUTSIDE RECORDS SUMMARY | 2024-04-07 12:33 | XMS_ITS ---
[facility] Organization [facility] Address [address] [place] [address] [phone] Care Team Providers Care Simulation Specialist Name Role Phone CHRISSY MARIE Primary Care Provider [phone] REASON FOR VISIT F/U HTN, SLEEP Encounters Encounter Location Date Provider Diagnosis [address] [id number] 06/06/2023 CHRISSY MARIE PLAN OF TREATMENT No Information Progress Notes * FIDE BALLESTEROSDOB:1940 (83 yo F)Acc No.[id number]:06/06/2023 Progress Note Patient:??FIDE BALLESTEROS Provider:??Chrissy Marie DNP :1940?Age:82 Y?Sex:Fe male Date:06/06/2023 Phone: Address:[address] [place] [address] [place], [place] Subjective: * Chief Complaints: * ?1. F/U HTN, SLEEP. * Medical History:?? Objective: Assessment: Plan: * Treatment: * Billing Information: * Visit Code:?? * Procedure Codes:?? * Sign off status: Pending * Provider:??Chrissy Marie DNP Date:??0 06/06/2023
--- OUTSIDE RECORDS SUMMARY | 2024-04-07 12:33 | XMS_ITS | Continuity of Care Document ---
Author Organization [facility] Address [address] [facility] [address] [place] [address] Phone [phone] Social History Type Date Description Comments Sex Unknown Medical Devices Description No Information Available Encounters Description No Information Available Assessments Description No Information Available Plan of Treatment No Information Available Functional Status Description No Information Available Mental Status Description No Information Available Referrals Description No Information Available
--- OUTSIDE RECORDS SUMMARY | 2024-04-07 12:33 | XMS_ITS ---
Author Organization [facility] Address [address] [place] [address] [phone] Care Team Providers Care Criminal Lawyer Name Role Phone CHRISSY MORGAN Primary Care Provider [phone] REASON FOR VISIT Mouthwash Refill Encounters Encounter Location Date Provider Diagnosis [facility], [address] [id number] 05/28/2023 CHRISSY MORGAN PLAN OF TREATMENT No Information Progress Notes * FIDE BALLESTEROSDOB:1940 (82 yo F)Acc No.[id number]:05/28/2023 Patient:??MALENABREAFIDE :1940?Age:82 Y?Sex:Fe male Phone: Address:[address] [place] [address] * true * Date:??
== END 2024-04-07 12:34 | disposition home or self-care (01) ==
PROVIDERS: PCP Internal Medicine; Visit Provider Internal Medicine
DX: I10 Essential (primary) hypertension (principal); E78.5 Hyperlipidemia, unspecified; R73.9 Hyperglycemia, unspecified; F41.9 Anxiety disorder, unspecified; F32.A Depression, unspecified

== ENCOUNTER → 2024-04-07 11:17 | Outpatient (BNVA) | payer MEDICARE, SELFPAY | PROVIDERS: PCP Internal Medicine; Visit Provider Internal Medicine | DX: I10 Essential (primary) hypertension (principal); E78.5 Hyperlipidemia, unspecified; R73.9 Hyperglycemia, unspecified; F41.9 Anxiety disorder, unspecified; F32.A Depression, unspecified | CPT/HCPCS: 96127; 99212 ==

== ENCOUNTER 2024-06-02 09:03 | Outpatient (REF) | payer MEDICARE, SELFPAY ==
--- OUTSIDE RECORDS SUMMARY | 2024-06-02 09:36 | XMS_ITS ---
Author Organization [facility] Address [address] [place] [phone] Care Team Providers Care Sewer Pipe Sorter Name Role Phone CHRISSY MARIE Primary Care Provider REASON FOR VISIT F/U HTN, SLEEP Encounters Encounter Location Date Provider Diagnosis [address] [id number] 06/06/2023 CHRISSY MARIE PLAN OF TREATMENT No Information Progress Notes * FIDE BALLESTEROSDOB:1940 (83 yo F)Acc No.[id number]:06/06/2023 Progress Note Patient:??FIDE BALLESTEROS Provider:??Chrissy Marie DNP :1940?Age:82 Y?Sex:Fe male Date:06/06/2023 Phone: Address:[address] [place] [address] [place], [place] Subjective: * Chief Complaints: * ?1. F/U HTN, SLEEP. * Medical History:?? Objective: Assessment: Plan: * Treatment: * Billing Information: * Visit Code:?? * Procedure Codes:?? * Sign off status: Pending * Provider:??Chrissy Marie DNP Date:??0 06/06/2023
--- OUTSIDE RECORDS SUMMARY | 2024-06-02 09:36 | XMS_ITS | Continuity of Care Document ---
Author Organization [facility] Address [address] [facility] [address] [place] [address] Phone [phone] Social History Type Date Description Comments Sex Unknown Medical Devices Description No Information Available Encounters Description No Information Available Assessments Description No Information Available Plan of Treatment No Information Available Functional Status Description No Information Available Mental Status Description No Information Available Referrals Description No Information Available
--- OUTSIDE RECORDS SUMMARY | 2024-06-02 09:37 | XMS_ITS ---
Author Organization [facility] Address [address] [place] [phone] Care Team Providers Care Community Outreach Director Name Role Phone CHRISSY MORGAN Primary Care Provider REASON FOR VISIT Mouthwash Refill Encounters Encounter Location Date Provider Diagnosis [facility], [address] [id number] 05/28/2023 CHRISSY MORGAN PLAN OF TREATMENT No Information Progress Notes * FIDE BALLESTEROSDOB:1940 (82 yo F)Acc No.[id number]:05/28/2023 Patient:??MALENABREAFIDE :1940?Age:82 Y?Sex:Fe male Phone: Address:[address] [place] [address] * true * Date:??
--- OUTSIDE RECORDS SUMMARY | 2024-06-02 09:37 | XMS_ITS | Patient Health Record ---
Author Organization [employer] [facility] Address [address] [place] [address] [phone] Care Team Providers Care Wedding Makeup Artist Name Role Phone CHRISSY MORGAN Primary Care Provider ALLERGIES No Known Allergies REASON FOR REFERRAL No Information MEDICATIONS Medication SIG (Take, Route, Frequency, Duration) Notes Start Date End Date Status Vitamin B12 3000mg (2) Active Apple Cider Vinegar Takes 2 daily Not-Taking Biotin 96213 MCG 1 tablet Orally Once a day [...] > 10 years Section Notes: Lives in [place] alone. [place]. [place]. [place]. [place]. [place]. [place] alone. PROBLEMS Problem Type ICD Code Onset Dates Problem Status W/U Status Risk SNOMED Code Notes Problem Essential (primary) hypertension (I10) Active confirmed Essential hypertension (73135027) Problem Insomnia, unspecified type (G47.00) Active confirmed 351531509 Problem Mixed anxiety and depressive disorder (F41.8) Active confirmed 520852967 VITAL SIGNS Height-cm 154.94 cm 06/13/2023 Height 61 in 06/13/2023 Encounters Encounter Location Date Provider Diagnosis [address] [id number] 06/06/[address] [id number] 06/13/2023 [facility] Essential (primary) hypertension I10 and Mixed anxiety [...] Coverage End Date Medicare [address] [place] [address] [phone] [id number] FIDE BALLESTEROS Self - patient is the insured 8 [facility] [employer] [address] [place] [address] [phone] [id number] FIDE BALLESTEROS Self - patient is the insured MEDICAL (GENERAL) HISTORY Medical History History ICD Code Hypertension Depression Surgical History Surgery Date(Month/Year) Cholecystectomy Bilateral knee replacements Ankle surgery, Rt - irving in ankle
--- OUTSIDE RECORDS SUMMARY | 2024-06-02 09:37 | XMS_ITS ---
Author Organization [facility] [employer] [facility] Address [address] [place] [phone] Care Team Providers Care Oven Dauber Name Role Phone CHRISSY MARIE Primary Care Provider [phone] ALLERGIES No Known Allergies REASON FOR VISIT [...] Active Vitamin B12 3000mg (2) Active Biotin 46581 MCG 1 tablet Orally Once a day [...] > 10 years Section Notes: Lives in [place], [place] alone. VITAL SIGNS Height 61 in 06/13/2023 Height-cm 154.94 cm 06/13/2023 Encounters Encounter Location Date [email or web address] [address] [id number] 06/13/2023 CHRISSY FRANK Essential (primary) hypertension I10 [...] Notes * IVY BALLESTEROSDOB:1940 (83 yo F)Acc No.[id number]:06/13/2023 Progress Note Patient:??IVY BALLESTEROS Provider:??Chrissy Marie DNP :1940?Age:83 Y?Sex:Fe male Date:06/13/2023 Phone: Address:[address] [facility] [place] Subjective: * Chief Complaints: * ?F/U HTN, [...] in the HPI. * Medical History:?? * Thread Laster History:?Last mammogram date??2020, normal per pt. @ [facility].?? * OB History:? History:?Total pregnancies:??2 ?Full-term pregnancies:??2 [...] you drink alcohol?: Yes, Socially. ?Lives in [place], [place] alone. * Medications:??TakingBiotin 1 0000 MCG [...] a day Mouth/Throat twice daily Taking Biotin 75006 MCG Tablet 1 tablet Orally Once a [...] ?Colonoscopy: Within 5 yrs, normal per pt.-in [place] ?Endoscopy: No ?Covid Vac: Yes & boosted ?Flu Vac: Yes ?PV: Yes ?Shingles Vac: Yes. * Follow Up:??2 Months (Reason : f/u fatigue) * Billing Information: * Visit Code:?? 72040 Office Visit, Est Pt., Level 3. * [...]
[2024-06-02 10:42] LABS: Estimated Average Glucose 105 mg/dL; Hemoglobin A1C 123.3386 umol/L; Hemoglobin A1c % 5.3 % (<6.0); Total Hemoglobin (HGBA1C) 3558.9828 umol/L
[2024-06-02 10:49] LABS: Alanine Aminotransferase 12 U/L (0-31); Albumin Level 4.1 g/dL (3.5-5.0); Alkaline Phosphatase 60 U/L (39-117); Anion Gap 12 (12-20); Aspartate Amino Transferase 25 U/L (5-31); Bilirubin Total 0.5 mg/dL (0.0-1.0); Blood Urea Nitrogen 12 mg/dL (9-16); Calcium 9.4 mg/dL (8.4-10.2); Carbon Dioxide 27 mmol/L (22-29); Chloride 108 mmol/L (96-108); Cholesterol 172 mg/dL (<200); Estimated Glomerular Filt Rate > 60; Glucose Fasting 114 mg/dL (60-99); HDL Cholesterol 58 mg/dL (>40); LDL Cholesterol Calculated 97 mg/dL (<100); Potassium 3.5 mmol/L (3.3-5.1); Sodium 143 mmol/L (135-145); Total Protein 6.7 g/dL (6.5-8.0); Triglycerides 86 mg/dL (<150)
== END 2024-06-02 09:04 | disposition home or self-care (01) ==
LOC: HO.HMGCLDS 09:03
PROVIDERS: PCP Internal Medicine; Visit Provider Internal Medicine
DX: E78.5 Hyperlipidemia, unspecified (principal); R73.9 Hyperglycemia, unspecified; I10 Essential (primary) hypertension
CPT/HCPCS: 36415; 80053; 80061; 83036

== ENCOUNTER 2024-06-09 11:00 | Outpatient (AMB) | payer MEDICARE, SELFPAY ==
--- NOTE | 2024-06-09 11:34 | MHC.PC.OV ---
Vital Signs 06/09/24 12:19 Height 5 ft 3 in Weight 147 lb BMI 26.0 BP 118/84 Blood Pressure Location Lt brachial Position Sitting Respiration 18 Pulse 71 Pulse Source Pulse Oximeter Temp 98.0 F Temp Source Oral Pulse Oximetry (%) 98 Oxygen Delivery Method Room Air Intake Visit Reasons: 2m follow up Intake Note: Pt is here today for 2 months follow up visit. Allergies No Known Allergies Allergy (Verified 06/09/24 12:22) Medication List - Last Reconciled 06/09/24 by Gail Andre MD acetaminophen 1,000 mg (2 x 500 mg) PO Q6H PRN amlodipine 5 mg PO DAILY lisinopril 40 mg PO DAILY metoprolol succinate ER 50 mg PO BID mirtazapine 15 mg PO BEDTIME pravastatin 20 mg PO DAILY venlafaxine 75 mg PO DAILY Tobacco use date assessed: 06/09/24 Fall risk assessment: No Falls in past year Last assessed Fall Risk: 06/09/24 Dental Screening Dental Screen Date: 04/07/24 HPI 2m follow up HPI Details Pt presents for HTN, hyperlipid, anxiety, stable on meds. PFSH Surgical History History of bilateral knee replacement Hx of appendectomy Hx of cholecystectomy Family History Father No problems noted. Mother Stroke Hypertension Social History Household Members: None Household Members Other:: lives alone, Housing: House Patient Tobacco Use Status: Never used Tobacco e-Cigarette/Vaping Use: Never Used service: No Current occupational status: retired Cognitive needs: No Hearing needs: Yes Vision needs: Yes Questionnaire Thrive Questionnaire Date Thrive assessed: 04/01/24 I am a: Patient What is your living situation today?: I have a steady place to live Within the past 12 months, did the food you bought not last and you didn't have the money to get more?: Never true Within the past 12 months, did you worry whether your food would run out before you got money to buy more?: Never true Do you have trouble paying for medicines?: No Do you have trouble getting transportation to medical appointments?: No Do you have trouble paying your heating and electricity bill?: No Do you have trouble taking care of your child, family member or friend?: No Do you have trouble with day-to-day activities such as bathing, preparing meals, shopping, managing finances, etc.?: No Are you currently unemployed and looking for a job?: No Are you interested in more education?: No Please select the resources that you would like help with: None THRIVE Score: 0 AUDIT C Alcohol Use Questionnaire (AUDIT-C) 1. How often do you have a drink containing alcohol?: Never 3. How often do you have six or more drinks on one occasion?: Never Total Score: 0 MAULIK-7 AMB Questionnaire MAULIK-7 Date MAULIK - 7 assessed: 04/07/24 Not being able to stop or control worryin = Several days Worrying too much about different things: 1 = Several days Trouble relaxin = Several days Becoming easily annoyed or irritable: 0 = Not at all Source: Developed by Drs. Chaitanya Vitale, Elicia Nunez, Kirk Smith and colleagues, with an educational jenniffer from [employer]. Review of Systems Const All systems reviewed & are unremarkable except as noted in HPI and below Eyes Reports no additional complaints ENT Reports no additional complaints Card Reports no additional complaints Resp Reports no additional complaints GI Reports no additional complaints Reports no additional complaints Physical exam (Primary Care) Vital Signs: Last Vital Signs Temp 98.0 F 06/09/24 12:19 Pulse 71 06/09/24 12:19 Resp 18 06/09/24 12:19 BP 118/84 06/09/24 12:19 Pulse Ox 98 06/09/24 12:19 Oxygen Delivery Method Room Air 06/09/24 12:19 BMI result Body Mass Index 26.0 Tobacco/Smoking Status: Tobacco use Status Tobacco use date assessed 06/09/24 06/09/24 12:24 Patient Tobacco Use Status Never used Tobacco 06/09/24 11:34 e-Cigarette/Vaping Use Never Used 06/09/24 11:34 Thrive Assessment: Date of Thrive Assessment Date Thrive assessed 04/01/24 06/09/24 11:34 Const General: no acute distress HENMT Head: Yes normal to inspection Face and sinus: Yes normal facial exam Throat: Yes posterior oropharynx normal Eyes General: appearance normal, both eyes and all related structures Neck Neck: Yes supple Resp Effort & Inspection: normal respiratory effort Auscultation: clear to auscultation bilaterally Cardio Rhythm: regular rhythm Heart sounds: S1 normal heart sound present and S2 normal heart sound present GI Inspection: Yes normal to inspection Palpation (GI): Soft to palpation Percussion: Yes normal to percussion Auscultation: normal bowel sounds Coding Level of Care Code Est Pt Level 4 (55825) Diagnoses Hyperlipidemia E78.5 Vitamin D deficiency E55.9 HTN (hypertension) I10 Anxiety and depression F41.9; F32.A Assessment & Plan Assessment & Plan (1) Hyperlipidemia: Code(s): E78.5 - Hyperlipidemia, unspecified Category: Medical Plan: cont Pravastatin (2) Vitamin D deficiency: Code(s): E55.9 - Vitamin D deficiency, unspecified Category: Medical Plan: cont vit D supplement (3) HTN (hypertension): Code(s): I10 - Essential (primary) hypertension Category: Medical Plan: cont meds (4) Anxiety and depression: Comment: After her in 2020 Code(s): F41.9 - Anxiety disorder, unspecified; F32.A - Depression, unspecified Category: Medical Plan: cont meds Orders: Orders Comprehensive Brock. Panel Fast 4 Months E78.5 - Hyperlipidemia, unspecified, I10 - Essential (primary) hypertension Lipid Panel 4 Months E78.5 - Hyperlipidemia, unspecified, I10 - Essential (primary) hypertension Complete Blood Count Auto Diff 4 Months E78.5 - Hyperlipidemia, unspecified, I10 - Essential (primary) hypertension
[2024-06-09 12:19] VITALS: BP 118/84; PULSE 71; RESP 18; TEMP 36.7; O2SAT 98; BMI 26.0
--- OUTSIDE RECORDS SUMMARY | 2024-06-09 13:08 | XMS_ITS | Patient Health Record ---
Author Organization [employer] [facility] Address [address] [place] [phone] Care Team Providers Care Studio Artist Name Role Phone CHRISSY MORGAN Primary Care Provider ALLERGIES No Known Allergies REASON FOR REFERRAL No Information MEDICATIONS Medication SIG (Take, Route, Frequency, Duration) Notes Start Date End Date Status Vitamin B12 3000mg (2) Active Apple Cider Vinegar Takes 2 daily Not-Taking Biotin 88766 MCG 1 tablet Orally Once a day [...] > 10 years Section Notes: Lives in [place], [place] alone. [place]. [place]. [place] alone. [place] alone. Lives in [place] alone[place] alone. [place] alone. [place] alone. [place]. [place] alone. [place] alone. PROBLEMS Problem Type ICD Code Onset Dates Problem Status W/U Status Risk SNOMED Code Notes Problem Essential (primary) hypertension (I10) Active confirmed Essential hypertension (02452094) Problem Insomnia, unspecified type (G47.00) Active confirmed 888549245 Problem Mixed anxiety and depressive disorder (F41.8) Active confirmed 362329433 VITAL SIGNS Height-cm 154.94 cm 06/13/2023 Height 61 in 06/13/2023 Encounters Encounter Location Date Provider Diagnosis [address] [id number] 06/13/2023 CHRISSY MORGAN Essential (primary) hypertension I10 and Mixed anxiety [...] Coverage End Date Medicare [address] [place] [address] [id number] FAVIANJULITOFIDE Self - patient is the insured 8 [facility] MEDEX [address] [place] [address] [phone] [id number] MALENAJULITO GUIDRYITH Self - patient is the insured MEDICAL (GENERAL) HISTORY Medical History History ICD Code Hypertension Depression Surgical History Surgery Date(Month/Year) Cholecystectomy Bilateral knee replacements Ankle surgery, Rt - irving in ankle
--- OUTSIDE RECORDS SUMMARY | 2024-06-09 13:08 | XMS_ITS | Continuity of Care Document ---
Author Organization [facility] Address [address] [facility] [address] [place] [address] Phone [phone] Social History Type Date Description Comments Sex Unknown Medical Devices Description No Information Available Encounters Description No Information Available Assessments Description No Information Available Plan of Treatment No Information Available Functional Status Description No Information Available Mental Status Description No Information Available Referrals Description No Information Available
--- OUTSIDE RECORDS SUMMARY | 2024-06-09 13:08 | XMS_ITS ---
Author Organization [facility] Address [address] [place] [phone] Care Team Providers Care Chef German Name Role Phone CHRISSY MARIE Primary Care [...] Active Vitamin B12 3000mg (2) Active Biotin 78511 MCG 1 tablet Orally Once a day [...] > 10 years Section Notes: Lives in [place], [place] alone. VITAL SIGNS Height 61 in 06/13/2023 Height-cm 154.94 cm 06/13/2023 Encounters [facility]counter [facility] [address] [id number] 06/13/[facility] CHRISSY FRANK Essential (primary) hypertension I10 [...] Notes * IVY BALLESTEROSDOB:1940 (83 yo F)Acc No.[id number]:06/13/2023 Progress Note Patient:??IVY BALLESTEROS Provider:??Chrissy Marie DNP :1940?Age:83 Y?Sex:Fe male Date:06/13/2023 Phone: Address:[address] [facility] [address] [address] [place] Subjective: * Chief Complaints: * ?F/U HTN, [...] in the HPI. * Medical History:?? * Temperature Inspector History:?Last mammogram date??2020, normal per pt. @ [facility].?? * OB History:? History:?Total pregnancies:??2 ?Full-term pregnancies:??2 [...] you drink alcohol?: Yes, Socially. ?Lives in [place], [place] alone. * Medications:??TakingBiotin 1 0000 MCG [...] a day Mouth/Throat twice daily Taking Biotin 04848 MCG Tablet 1 tablet Orally Once a [...] ?Colonoscopy: Within 5 yrs, normal per pt.-in [place] ?Endoscopy: No ?Covid Vac: Yes & boosted ?Flu Vac: Yes ?PV: Yes ?Shingles Vac: Yes. * Follow Up:??2 Months (Reason : f/u fatigue) * Billing Information: * Visit Code:?? 15878 Office Visit, Est Pt., Level 3. * [...]
--- OUTSIDE RECORDS SUMMARY | 2024-06-09 13:08 | XMS_ITS ---
Author [facility] Address [address] [place] [phone] Care Team Providers Care Herbarium Curator Name Role Phone CHRISSY MARIE Primary Care Provider [phone] REASON FOR VISIT F/U HTN, SLEEP Encounters Encounter Location Date Provider Diagnosis [address] [id number] 06/06/2023 CHRISSY MARIE PLAN OF TREATMENT No Information Progress Notes * FIDE BALLESTEROSDOB:1940 (84 yo F)Acc No.[id number]:06/06/2023 Progress Note Patient:??FIDE BALLESTEROS Provider:??Chrissy Marie DNP :1940?Age:82 Y?Sex:Fe male Date:06/06/2023 Phone: Address:[address] [place] [address] [phone] Subjective: * Chief Complaints: * ?1. F/U HTN, SLEEP. * Medical History:?? Objective: Assessment: Plan: * Treatment: * Billing Information: * Visit Code:?? * Procedure Codes:?? * Sign off status: Pending * Provider:??Chrissy Marie DNP Date:??0 06/06/2023
--- OUTSIDE RECORDS SUMMARY | 2024-06-09 13:08 | XMS_ITS ---
Author Organization [facility] Address [address] [place] [phone] Care Team Providers Care Manager Wellness Name Role Phone CHRISSY MORGAN Primary Care Provider [phone] REASON FOR VISIT Mouthwash Refill Encounters Encounter Location Date Provider Diagnosis [facility], [address] [id number] 05/28/2023 CHRISSY MORGAN PLAN OF TREATMENT No Information Progress Notes * FIDE BALLESTEROSDOB:1940 (82 yo F)Acc No.[id number]:05/28/2023 Patient:??MALENABREAFIDE :1940?Age:82 Y?Sex:Fe male Phone: Address:[address] [place] [address] * true * Date:??
== END 2024-06-09 12:55 | disposition home or self-care (01) ==
LOC: HO.HMCC 11:00
PROVIDERS: PCP Internal Medicine; Visit Provider Internal Medicine
DX: E78.5 Hyperlipidemia, unspecified (principal); E55.9 Vitamin D deficiency, unspecified; I10 Essential (primary) hypertension; F41.9 Anxiety disorder, unspecified; F32.A Depression, unspecified

== ENCOUNTER → 2024-06-09 11:00 | Outpatient (BNVA) | payer MEDICARE, SELFPAY | PROVIDERS: PCP Internal Medicine; Visit Provider Internal Medicine | DX: E78.5 Hyperlipidemia, unspecified (principal); E55.9 Vitamin D deficiency, unspecified; F41.9 Anxiety disorder, unspecified; F32.A Depression, unspecified; I10 Essential (primary) hypertension | CPT/HCPCS: 99212 ==

== ENCOUNTER 2024-11-12 12:28 | Outpatient (AMB) | payer MEDICARE, SELFPAY ==
--- NOTE | 2024-11-12 12:45 | A.OFFPC_ITS ---
Vital Signs 11/12/24 12:46 Height 5 ft 3 in Weight 148 lb BMI 26.2 BP 114/64 Blood Pressure Location Rt brachial Position Sitting Respiration 18 Pulse 70 Pulse Source Pulse Oximeter Temp 98.6 F Temp Source Oral Pulse Oximetry (%) 98 Oxygen Delivery Method Room Air Intake Visit Reasons: Meds review Intake Note: Pt is here today for a follow up visit on HTN. Allergies No Known Allergies Allergy (Verified 06/09/24 12:22) Medication List - Last Reconciled 11/12/24 by Gail Andre MD acetaminophen 1,000 mg (2 x 500 mg) PO Q6H PRN amlodipine 5 mg PO DAILY lisinopril 40 mg PO DAILY metoprolol succinate ER 50 mg PO BID mirtazapine 15 mg PO BEDTIME pravastatin 20 mg PO DAILY venlafaxine 75 mg PO DAILY Tobacco use date assessed: 06/09/24 Fall risk assessment: No Falls in past year Last assessed Fall Risk: 11/12/24 Dental Screening Dental Screen Date: 04/07/24 HPI Meds review HPI Details Pt presents for f/u HTN, hyperlipid, chronic anxiety, stable on meds. Pt is stressed out about her sister dxd with Alzheimer disease after her 2 weeks ago. [facility] Medical History (Updated 11/12/24 @ 18:20 by Gail Andre MD) Osteoarthritis of right hip Hyperglycemia Hyperlipidemia HTN (hypertension) Anxiety and depression Surgical History History of bilateral knee replacement Hx of appendectomy Hx of cholecystectomy Family History Father No problems noted. Mother Stroke Hypertension Social History Household Members: None Household Members Other:: lives alone, Housing: House Patient Tobacco Use Status: Never used Tobacco e-Cigarette/Vaping Use: Never Used service: No Current occupational status: retired Cognitive needs: No Hearing needs: Yes Vision needs: Yes Questionnaire PHQ-9 Over the last 2 weeks, how often have you been bothered by any of the following problems? 1. Little interest or pleasure in doing things: not at all 2. Feeling down, depressed, or hopeless: not at all 3. Trouble falling or staying asleep, or sleeping too much: nearly every day 4. Feeling tired or having little energy: nearly every day 5. Poor appetite or overeating: not at all 6. Feeling bad about yourself - or that you are a failure or have let yourself or your family down: not at all 7. Trouble concentrating on things, such as reading the newspaper or watching television: not at all 8. Moving or speaking so slowly that other people could have noticed. Or the opposite - being so fidgety or restless that you have been moving around a lot more than usual: not at all 9. Thoughts that you would be better off or of hurting yourself in some way: not at all Total score: 6 Depression Screening Interpretation: Negative Depression Screening Done: Yes Source: Developed by Drs. Chaitanya Vitale, Elicia Nunez, Kirk Smith and colleagues, with an educational jenniffer from [employer]. Thrive Questionnaire Date Thrive assessed: 04/01/24 I am a: Patient What is your living situation today?: I have a steady place to live Within the past 12 months, did the food you bought not last and you didn't have the money to get more?: Never true Within the past 12 months, did you worry whether your food would run out before you got money to buy more?: Never true Do you have trouble paying for medicines?: No Do you have trouble getting transportation to medical appointments?: No Do you have trouble paying your heating and electricity bill?: No Do you have trouble taking care of your child, family member or friend?: No Do you have trouble with day-to-day activities such as bathing, preparing meals, shopping, managing finances, etc.?: No Are you currently unemployed and looking for a job?: No Are you interested in more education?: No Please select the resources that you would like help with: None THRIVE Score: 0 AUDIT C Alcohol Use Questionnaire (AUDIT-C) 1. How often do you have a drink containing alcohol?: Monthly or less 2. How many drinks containing alcohol do you have on a typical day when you are drinking?: 1 or 2 3. How often do you have six or more drinks on one occasion?: Never Total Score: 1 MAULIK-7 AMB Questionnaire MAULIK-7 Date MAULIK - 7 assessed: 04/07/24 Feeling nervous, anxious, or on edge: 1 = Several days Not being able to stop or control worryin = Several days Worrying too much about different things: 1 = Several days Trouble relaxin = Not at all Being so restless that it is hard to sit still: 0 = Not at all Becoming easily annoyed or irritable: 0 = Not at all Feeling afraid as if something awful might happen: 0 = Not at all Total MAULIK-7 score (0-4 normal; 5-9 mild; 10-14 moderate; 15-21 severe): 3 Source: Developed by Drs. Chaitanya Vitale, Elicia Nunez, Kirk Smith and colleagues, with an educational jenniffer from [employer]. Review of Systems Const All systems reviewed & are unremarkable except as noted in HPI and below Reports no additional complaints Eyes Reports no additional complaints ENT Reports no additional complaints Card Reports no additional complaints Resp Reports no additional complaints GI Reports no additional complaints Reports no additional complaints Physical exam (Primary Care) Vital Signs: Last Vital Signs Temp 98.6 F 11/12/24 12:46 Pulse 70 11/12/24 12:46 Resp 18 11/12/24 12:46 BP 114/64 11/12/24 12:46 Pulse Ox 98 11/12/24 12:46 Oxygen Delivery Method Room Air 11/12/24 12:46 BMI result Body Mass Index 26.2 Tobacco/Smoking Status: Tobacco use Status Tobacco use date assessed 06/09/24 11/12/24 12:45 Patient Tobacco Use Status Never used Tobacco 11/12/24 12:45 e-Cigarette/Vaping Use Never Used 11/12/24 12:45 PHQ-9: PHQ-9 Score PHQ-9: Total score 6 11/12/24 13:34 Depression Screening Interpretation: Negative Thrive Assessment: Date of Thrive Assessment Date Thrive assessed 04/01/24 11/12/24 12:45 Const General: no acute distress HENMT Face and sinus: Yes normal facial exam Eyes General: appearance normal, both eyes and all related structures Resp Effort & Inspection: normal respiratory effort Auscultation: clear to auscultation bilaterally Cardio Rhythm: regular rhythm Heart sounds: S1 normal heart sound present and S2 normal heart sound present GI Inspection: Yes normal to inspection Palpation (GI): Soft to palpation Percussion: Yes normal to percussion Auscultation: normal bowel sounds Coding Level of Care Code Est Pt Level 4 (11955) Diagnoses Anxiety and depression F41.9; F32.A HTN (hypertension) I10 Hyperlipidemia E78.5 Hyperglycemia R73.9 Assessment & Plan Assessment & Plan (1) Anxiety and depression: Comment: After her in 2020 Code(s): F41.9 - Anxiety disorder, unspecified; F32.A - Depression, unspecified Category: Medical Plan: Continue Effexor and mirtazapine (2) HTN (hypertension): Code(s): I10 - Essential (primary) hypertension Category: Medical Plan: Continue amlodipine metoprolol and lisinopril (3) Hyperlipidemia: Code(s): E78.5 - Hyperlipidemia, unspecified Category: Medical Plan: Continue statin (4) Hyperglycemia: Code(s): R73.9 - Hyperglycemia, unspecified Category: Medical Plan: A1c was 5.3 in May continue ADA diet increase physical activity and weight loss discussed with the patient. Return in 6 months Orders: Orders Comprehensive [place]. Panel Fast Today E55.9 - Vitamin D deficiency, unspecified, E78.5 - Hyperlipidemia, unspecified, I10 - Essential (primary) hypertension, R73.9 - Hyperglycemia, unspecified Complete Blood Count Auto Diff Today E55.9 - Vitamin D deficiency, unspecified, E78.5 - Hyperlipidemia, unspecified, I10 - Essential (primary) hypertension, R73.9 - Hyperglycemia, unspecified TSH reflex Free T4 Today E55.9 - Vitamin D deficiency, unspecified, E78.5 - Hyperlipidemia, unspecified, I10 - Essential (primary) hypertension, R73.9 - Hyperglycemia, unspecified Vitamin B12 and Folate Today E55.9 - Vitamin D deficiency, unspecified, E78.5 - Hyperlipidemia, unspecified, I10 - Essential (primary) hypertension, R73.9 - Hyperglycemia, unspecified Hemoglobin A1c Today E55.9 - Vitamin D deficiency, unspecified, E78.5 - Hyperlipidemia, unspecified, I10 - Essential (primary) hypertension, R73.9 - Hyperglycemia, unspecified Lipid Panel Today E55.9 - Vitamin D deficiency, unspecified, E78.5 - Hyperlipidemia, unspecified, I10 - Essential (primary) hypertension, R73.9 - Hyperglycemia, unspecified Vitamin D 25-OH Total Today E55.9 - Vitamin D deficiency, unspecified, E78.5 - Hyperlipidemia, unspecified, I10 - Essential (primary) hypertension, R73.9 - Hyperglycemia, unspecified Comprehensive [place]. Panel Fast 6 Months E78.5 - Hyperlipidemia, unspecified, I10 - Essential (primary) hypertension Lipid Panel 6 Months E78.5 - Hyperlipidemia, unspecified, I10 - Essential (primary) hypertension
[2024-11-12 12:46] VITALS: BP 114/64; PULSE 70; RESP 18; TEMP 37; O2SAT 98; BMI 26.2
--- OUTSIDE RECORDS SUMMARY | 2024-11-12 17:17 | XMS_ITS | Continuity of Care Document ---
Author Organization [facility] Address [address] [place] [address] Phone [phone] Social History Type Date Description Comments Sex Female Sex Unknown Medical Devices Description No Information Available Encounters Description No Information Available Assessments Description No Information Available Plan of Treatment No Information Available Functional Status Description No Information Available Mental Status Description No Information Available Referrals Description No Information Available
== END 2024-11-12 14:03 | disposition home or self-care (01) ==
LOC: HO.HMCC 12:28
PROVIDERS: PCP Internal Medicine; Visit Provider Internal Medicine
DX: F41.9 Anxiety disorder, unspecified (principal); F32.A Depression, unspecified; I10 Essential (primary) hypertension; E78.5 Hyperlipidemia, unspecified; R73.9 Hyperglycemia, unspecified

== ENCOUNTER → 2024-11-12 12:28 | Outpatient (BNVA) | payer MEDICARE, SELFPAY | LOC: CF 11-13 09:08 | PROVIDERS: PCP Internal Medicine; Visit Provider Internal Medicine | DX: I10 Essential (primary) hypertension (principal); E78.5 Hyperlipidemia, unspecified; F41.9 Anxiety disorder, unspecified; F32.A Depression, unspecified; R73.9 Hyperglycemia, unspecified; Z63.8 Other specified problems related to primary support group; Z79.899 Other long term (current) drug therapy | CPT/HCPCS: 96127; 99212 ==

== ENCOUNTER 2024-11-13 09:08 | Outpatient (REF) | payer MEDICARE, SELFPAY ==
[2024-11-13 10:14] LABS: MANUAL DIFF FLAG NO
[2024-11-13 10:43] LABS: Hematocrit 42.2 % (37.0-47.0); Hemoglobin 14.0 g/dl (12.0-16.0); Imm Gran Abs Auto 0.01 X10*3/uL (0.00-0.03); Imm Gran Pct Auto 0.2 % (0.0-0.4); Lymphocytes Absolute Auto 1.8 X10*3/uL (1.2-4.9); Mean Corpuscular HGB Conc 33.2 g/dl (31.0-35.0); Mean Corpuscular Hemoglobin 29.9 pg (27.0-33.0); Mean Corpuscular Volume 90.2 fL (80.0-98.0); NRBC Abs Auto 0.000 X10*3/uL (0.0-0.012); NRBC Pct Auto 0.0 /100WBC (0.0-0.2); Platelet Count 326 X10*3/uL (160-400); Red Blood Count 4.68 X10*6/uL (4.20-5.50); White Blood Count 4.9 X10*3/uL (4.8-10.8)
[2024-11-13 10:59] LABS: Hemoglobin A1C 122.8490 umol/L; Total Hemoglobin (HGBA1C) 3489.6646 umol/L
[2024-11-13 11:34] LABS: Alanine Aminotransferase 14 U/L (0-31); Albumin Level 4.4 g/dL (3.5-5.0); Alkaline Phosphatase 59 U/L (39-117); Anion Gap 11 (12-20); Aspartate Amino Transferase 23 U/L (5-31); Blood Urea Nitrogen 13 mg/dL (9-16); Calcium 9.4 mg/dL (8.4-10.2); Carbon Dioxide 30 mmol/L (22-29); Chloride 109 mmol/L (96-108); Cholesterol 193 mg/dL (<200); Estimated Glomerular Filt Rate > 60; HDL Cholesterol 57 mg/dL (>40); Potassium 3.9 mmol/L (3.3-5.1); Sodium 146 mmol/L (135-145); Total Protein 6.9 g/dL (6.5-8.0); Triglycerides 66 mg/dL (<150)
[2024-11-13 11:51] LABS: Folate 15.4 ng/mL (> or = 4.0); Vitamin B12 693 pg/mL (200-900)
== END 2024-11-13 09:09 | disposition home or self-care (01) ==
LOC: HO.HMGCLDS 09:08
PROVIDERS: PCP Internal Medicine; Visit Provider Internal Medicine
DX: I10 Essential (primary) hypertension (principal); E78.5 Hyperlipidemia, unspecified; R73.9 Hyperglycemia, unspecified; E55.9 Vitamin D deficiency, unspecified
CPT/HCPCS: 36415; 80053; 80061; 82306; 82607; 82746; 83036; 84443; 85025